=== PATIENT | female | born 1960 | race Caucasian/White ===

== ENCOUNTER → 2021-01-24 | Outpatient (CLI) | payer OTHER ==
--- NOTE | 2021-01-25 18:37 | RAD ---
DATE: 01/24/2021 EXAM: DIGITAL SCREEN BILAT W/CAD HISTORY: Screening COMPARISON: 02/02/2016, 03/29/2013, 06/01/2007 This study was interpreted with the benefit of Computerized Aided Detection (CAD). Breast Density: HETERO The breast parenchyma is heterogenously dense, which could reduce sensitivity of mammography. Breast parenchyma level C. FINDINGS: No mass, suspicious calcification, or architectural distortion in either breast. IMPRESSION: No evidence of malignancy. BI-RADS CATEGORY: 1 NEGATIVE RECOMMENDED FOLLOW-UP: 12M 12 MONTH FOLLOW-UP PQRS compliance statement: Patient information was entered into a reminder system with a target due date for the next mammogram. Mammography is a sensitive method for finding small breast cancers, but it does not detect them all and is not a substitute for careful clinical examination. A negative mammogram does not negate a clinically suspicious finding and should not result in delay in biopsying a clinically suspicious abnormality. "Our facility is accredited by the [employer] Mammography Program."
== END ==
LOC: MAMMO 10:51
PROVIDERS: ATTEND Nurse Practitioner Family
DX: Z12.31 Encounter for screening mammogram for malignant neoplasm of breast (principal)
CPT/HCPCS: 77067

== ENCOUNTER → 2021-08-14 | Outpatient (CLI) | payer MEDICARE ==
--- NOTE | 2021-08-14 15:47 | RAD ---
EXAM: Head sonogram. HISTORY: Swelling status post blunt trauma. TECHNIQUE: Sonographic imaging of the forehead at the site of palpable concern was performed. COMPARISON: None. FINDINGS: There is no mass or fluid collection. There is no evidence of abnormal skin thickening. IMPRESSION: No suspicious sonographic finding within the forehead at the site of palpable concern. Co ntinued clinical follow-up of palpable abnormalities is recommended. Cross-sectional imaging can be p erformed if there is continuing concern. Electronically signed by: Lexie Aranda MD (08/14/2021 3:44 PM) [id number]
== END ==
LOC: US 14:54
PROVIDERS: ATTEND Nurse Practitioner Adult Health
DX: R22.0 Localized swelling, mass and lump, head (principal)
CPT/HCPCS: 76882